=== PATIENT | male | born 1945 | race African-American/Black ===

== ENCOUNTER 2021-06-03 11:39 | Inpatient (IN) | payer MEDICARE ==
[~2021-06-03] VITALS: Ht 172.7 cm; Wt 97.0 kg
[2021-06-03 12:36] VITALS: BP 131/88
[2021-06-03 15:00] VITALS: BP 122/80
[2021-06-03 15:42] LABS: HEMATOCRIT 49.9 % (39.0-53.0); HEMOGLOBIN 16.3 g/dL (13.0-17.5); RED BLOOD COUNT 6.21 x10^6/uL (4.30-5.70); RED CELL DISTRIBUTION WIDTH 15.1 % (11.5-14.5); WHITE BLOOD COUNT 10.7 x10^3/uL (4.0-11.0)
[2021-06-03] MEDS: ASPIRIN CHEWABLE 81 MG TABLET. PO SCH (15:43)
[2021-06-03 15:45] LABS: ALBUMIN 3.5 g/dL (3.4-5.0); ALBUMIN/GLOBULIN RATIO 0.7 (1.0-1.7); CALCIUM 10.2 mg/dL (8.5-10.1); CREATININE 1.6 mg/dL (0.7-1.3); GFR 51.4; TOTAL BILIRUBIN 0.6 mg/dL (0.2-1.0); TOTAL PROTEIN 8.6 g/dL (6.4-8.2)
--- NOTE | 2021-06-03 15:49 | RAD ---
EXAMINATION: XR CHEST 1V CLINICAL HISTORY: SHOB. EXAM DATE/TIME: 06/03/2021 2:21 PM COMPARISON: None FINDINGS: Lines, Tubes, and Devices: None. Cardiomediastinal Silhouette: Prominent cardiac silhouette, likely-joint by AP portable technique. Ao rtic atherosclerotic calcification. Lungs and Pleura: Mild patchy bibasilar opacities. No evidence of pleural effusion. Pulmonary vascula ture unremarkable. Bones and Soft Tissues: Degenerative changes in the thoracic spine. Median sternotomy wires. IMPRESSION: Mild patchy bibasilar airspace disease, possibly subsegmental atelectasis. Correlate with pending CTA chest. Electronically signed by: Alban Sweeney DO (06/03/2021 3:47 PM) [id number]
[2021-06-03] MEDS ORDERED: IOHEXOL 350 MG/ML 100 ML VIAL. IV ONE (16:15)
[2021-06-03] MEDS ORDERED: CONTRAST GIVEN. MC PRN (16:30)
--- NOTE | 2021-06-03 16:59 | RAD ---
EXAMINATION: CTA chest. Technique: Axial images with coronal and sagittal reconstructions with MIP technique are performed of chest with angiogram protocol. 85 mL of Omnipaque 350 administered intravenously. One or more of the following radiation dose reduction techniques was used: automated exposure control , adjustment of mA and/or KV according to patient size, and/or utilization of iterative reconstructio n technique. HISTORY: 76 years Male shortness of breath. COMPARISON: None. FINDINGS: There is a large from filling defects in the pulmonary artery on the right side and other filling def ects in bilateral pulmonary artery branches. The pulmonary embolism on the right side has an unusual the appearance and is associated with the surrounding soft tissue thickening around the catheter righ t pulmonary artery branch point extending around the artery to the right lower lobe concerning for as sociated the central right the hilar or from a mass or lymphadenopathy. The unusual appearance in the right pulmonary artery is suggestive of perhaps subacute pulmonary embolism in the right main pulmon koki artery. The catheter right ventricle appears slightly dilated suggestive of right heart strain. There is no p ericardial or pleural effusion. The thoracic aorta is borderline aneurysmal measuring 4 cm in caliber . There is no dissection. There is evidence of prior CABG surgery. The lungs demonstrate nonspecific focal groundglass opacity in the superior segment of the right lowe r lobe with distortion of the architecture of the lung suggestive of possible scarring. Subsegmental minimal atelectasis or consolidation is also seen in the lateral aspect of the right lung base. No mediastinal or left hilar mass. Sections in the upper abdomen demonstrate renal cysts. The osseous structures demonstrate degenerative in the thoracic spine. There is a also slight cortica l thickening seen in the posterior aspect of the left ninth rib. Etiology is uncertain. IMPRESSION: 1. Moderate to large burden of pulmonary embolism more on the right side with suggestion of RV strain . 2. Concern for underlying right perihilar mass or lymphadenopathy. Short-term follow-up CT chest afte r anticoagulation treatment to reassess is suggested. PET/CT follow-up could be also helpful. Critical result: Findings discussed by phone with Jonnie, the nurse working with Dr. JIMMIE NAVARRO MD at 06/03/2021 4:47 PM. RESULT CODE: (C) Electronically signed by: Efren Morales MD (06/03/2021 4:56 PM) [id number]
--- NOTE | 2021-06-03 17:56 | HP ---
DATE OF SERVICE: 06/03/2021 ADMIT DATE: 06/03/2021 CHIEF COMPLAINT: Cough and shortness of breath. HISTORY OF PRESENT ILLNESS: A 76-year-old black male who has had slowly increasing dyspnea, dry cough and fatigue for about the last 2 months. Chest x-ray 3 months ago was clear and one month ago he took furosemide for daily, which has not helped him. Recently, he denies sputum production, fever, chills, COVID exposure, chest pain or other symptoms. He has had COVID vaccines up to date of this point. PAST MEDICAL HISTORY: Coronary bypass surgery in 1997. No problems since that time. He has had no other surgeries. MEDICATIONS: Include atorvastatin, amlodipine for hypertension and aspirin. ALLERGIES: No allergies are known. SOCIAL HISTORY: He has never been a smoker. He is retired. He is . He is a nondrinker. FAMILY HISTORY: Unremarkable. REVIEW OF SYSTEMS: No other specific complaints. OBJECTIVE: ENT: All within normal limits. NECK: No masses, nodes, JVD or bruits. LUNGS: Clear with mild tachypnea and decreased breath sounds, but no wheezing or rales are heard. CARDIOVASCULAR: Regular rate. No tachycardia or murmur or S3 is heard. ABDOMEN: Benign. EXTREMITIES: No edema. No joint or skin lesions or nail bed findings. NEUROLOGIC: Physiologic and nonfocal. ASSESSMENT: Ongoing dyspnea, dry cough and now mild hypoxia about a month ago. Possibilities include occult cardiomyopathy or undiagnosed pulmonary disease, not seen on previous x-rays. PLAN: Echo, CT scan, labs and further evaluation with low flow oxygen on board. DIVYA BOOKER: Ragini TID: [id number]
[2021-06-03] MEDS: RIVAROXABAN 15 MG TABLET. PO SCH (18:22)
[2021-06-03 18:33] LABS: HYALINE CASTS, URINE FEW /HPF
[2021-06-03 18:34] LABS: AMORPHOUS SEDIMENT,UR PRESENT /HPF; BACTERIA,URINE 0 /HPF (0-FEW)
[2021-06-03 19:57] VITALS: BP 126/85
[2021-06-03] MEDS: ATORVASTATIN CALCIUM 20 MG TABLET PO SCH (21:12)
[2021-06-03] MEDS: TAMSULOSIN 0.4 MG CAP.ER.24H. PO SCH (21:12)
[2021-06-03 23:34] VITALS: BP 129/82
[2021-06-04 03:54] VITALS: BP 130/79
[2021-06-04 07:00] VITALS: BP 131/80
[2021-06-04] MEDS ORDERED: PERFLUTREN PROTEIN-A MICROSPHR 0.22 MG/ML 3 ML VIAL. IV ONE ×2 (07:00→10:49)
[2021-06-04] MEDS: ASPIRIN CHEWABLE 81 MG TABLET. PO SCH (08:12)
[2021-06-04] MEDS: RIVAROXABAN 15 MG TABLET. PO SCH ×2 (08:12→17:18)
--- NOTE | 2021-06-04 08:40 | PDOC ---
Provider Note Date of Service: DATE: 06/04/21 TIME: 08:[address] shows bilat PE, source ?- on xarelto and feels a litlle better- sxs present 1-2 months- will do echo, us legs, concern re occult CA present- labs ok so far Justifications for Admission Other Justification JIMMIE NAVARRO MD Jun 04, 2021 08:40
--- NOTE | 2021-06-04 09:30 | PDOC ---
PULMONARY PROGRESS NOTES DATE: 06/04/21 TIME: 09:29 Vitals Vital Signs Date Time Temp Pulse Resp B/P (MAP) Pulse Ox O2 Delivery O2 Flow Rate FiO2 06/04/21 08:11 84 131/80 06/04/21 08:00 Nasal Cannula 2.0 06/04/21 07:00 98.0 18 92 98.0 Labs Laboratory Tests Test 06/03/21 13:30 06/03/21 17:45 White Blood Count 10.7 x10^3/uL (4.0-11.0) Red Blood Count 6.21 x10^6/uL (4.30-5.70) Hemoglobin 16.3 g/dL (13.0-17.5) Hematocrit 49.9 % (39.0-53.0) Mean Corpuscular Volume 80 fL (79-100) Mean Corpuscular Hemoglobin 26 pg (25-35) Mean Corpuscular Hemoglobin Concent 33 g/dL (31-37) Red Cell Distribution Width 15.1 % (11.5-14.5) Platelet Count 195 x10^3/uL (140-400) D-Dimer (Madelyn) 17.41 ug/mlFEU (0.00-0.50) Sodium Level 143 mmol/L (136-145) Potassium Level 3.0 mmol/L (3.5-5.1) Chloride Level 105 mmol/L (98-107) Carbon Dioxide Level 29 mmol/L (21-32) Anion Gap 9 (6-14) Blood Urea Nitrogen 20 mg/dL (8-26) Creatinine 1.6 mg/dL (0.7-1.3) Estimated GFR (Cockcroft-Gault) 51.4 BUN/Creatinine Ratio 13 (6-20) Glucose Level 92 mg/dL (70-99) Calcium Level 10.2 mg/dL (8.5-10.1) Total Bilirubin 0.6 mg/dL (0.2-1.0) Aspartate Amino Transf (AST/SGOT) 40 U/L (15-37) Alanine Aminotransferase (ALT/SGPT) 41 U/L (16-63) Alkaline Phosphatase 110 U/L (46-116) Creatine Kinase 274 U/L (39-308) Total Protein 8.6 g/dL (6.4-8.2) Albumin 3.5 g/dL (3.4-5.0) Albumin/Globulin Ratio 0.7 (1.0-1.7) Urine Collection Type Unknown Urine Color (Auto) Yellow Urine Turbidity Clear Urine pH (Auto) 6.5 (<5.0-8.0) Urine Specific [place] >1.050 (1.000-1.030) Urine Protein (Auto) 100 mg/dL (Negative) Urine Glucose (Auto)(UA) Negative mg/dL (Negative) Urine Ketones (Auto) Negative mg/dL (Negative) Urine Blood (Auto) Negative (Negative) Urine Nitrite (Auto) Negative (Negative) Urine Bilirubin (Auto) Negative (Negative) Urine Urobilinogen (Auto) Normal mg/dL (Normal) Urine Leukocyte Esterase (Auto) Negative (Negative) Urine RBC 1-2 /HPF (0-2) Urine WBC 1-4 /HPF (0-4) Urine Squamous Epithelial Cells Few /LPF Urine Amorphous Sediment Present /HPF Urine Bacteria 0 /HPF (0-FEW) Urine Hyaline Casts Few /HPF Urine Mucus Mod /LPF Laboratory Tests Test 06/03/21 13:30 06/03/21 17:45 White Blood Count 10.7 x10^3/uL (4.0-11.0) Red Blood Count 6.21 x10^6/uL (4.30-5.70) Hemoglobin 16.3 g/dL (13.0-17.5) Hematocrit 49.9 % (39.0-53.0) Mean Corpuscular Volume 80 fL (79-100) Mean Corpuscular Hemoglobin 26 pg (25-35) Mean Corpuscular Hemoglobin Concent 33 g/dL (31-37) Red Cell Distribution Width 15.1 % (11.5-14.5) Platelet Count 195 x10^3/uL (140-400) D-Dimer (Madelyn) 17.41 ug/mlFEU (0.00-0.50) Sodium Level 143 mmol/L (136-145) Potassium Level 3.0 mmol/L (3.5-5.1) Chloride Level 105 mmol/L (98-107) Carbon Dioxide Level 29 mmol/L (21-32) Anion Gap 9 (6-14) Blood Urea Nitrogen 20 mg/dL (8-26) Creatinine 1.6 mg/dL (0.7-1.3) Estimated GFR (Cockcroft-Gault) 51.4 BUN/Creatinine Ratio 13 (6-20) Glucose Level 92 mg/dL (70-99) Calcium Level 10.2 mg/dL (8.5-10.1) Total Bilirubin 0.6 mg/dL (0.2-1.0) Aspartate Amino Transf (AST/SGOT) 40 U/L (15-37) Alanine Aminotransferase (ALT/SGPT) 41 U/L (16-63) Alkaline Phosphatase 110 U/L (46-116) Creatine Kinase 274 U/L (39-308) Total Protein 8.6 g/dL (6.4-8.2) Albumin 3.5 g/dL (3.4-5.0) Albumin/Globulin Ratio 0.7 (1.0-1.7) Urine Collection Type Unknown Urine Color (Auto) Yellow Urine Turbidity Clear Urine pH (Auto) 6.5 (<5.0-8.0) Urine Specific [place] >1.050 (1.000-1.030) Urine Protein (Auto) 100 mg/dL (Negative) Urine Glucose (Auto)(UA) Negative mg/dL (Negative) Urine Ketones (Auto) Negative mg/dL (Negative) Urine Blood (Auto) Negative (Negative) Urine Nitrite (Auto) Negative (Negative) Urine Bilirubin (Auto) Negative (Negative) Urine Urobilinogen (Auto) Normal mg/dL (Normal) Urine Leukocyte Esterase (Auto) Negative (Negative) Urine RBC 1-2 /HPF (0-2) Urine WBC 1-4 /HPF (0-4) Urine Squamous Epithelial Cells Few /LPF Urine Amorphous Sediment Present /HPF Urine Bacteria 0 /HPF (0-FEW) Urine Hyaline Casts Few /HPF Urine Mucus Mod /LPF Impression . Acute PE Superficial femoral vein thrombosis Dyspnea secondary to above See orders NICK MYERS MD Jun 04, 2021 09:30
--- NOTE | 2021-06-04 10:15 | RAD ---
US BILATERAL LOWEREXTREMITY VENOUS DOPPLER History: Pulmonary embolism. Shortness of breath. Comparison: CT chest June 03, 2021 Technique: Multiple longitudinal and transverse high resolution real-time images of the venous system of bilateral lower extremity were obtained with color and Doppler sampling. Findings: Nonocclusive thrombus within the left superficial femoral vein. Duplicated superficial femoral veins. Patent left common femoral, popliteal, and calf veins. Patent right common femoral, deep femoral, superficial femoral, popliteal and calf veins. Impression: 1. Deep vein thrombosis within the left superficial femoral vein. Electronically signed by: Dimitry Carlson DO (06/04/2021 10:13 AM) [id number]
[2021-06-04 11:00] VITALS: BP 146/89
[2021-06-04] MEDS ORDERED: ANTI-COAG MONITOR BY PHARMACY. MC PRN (13:00)
--- NOTE | 2021-06-04 13:03 | CARD ---
MR#: [id number] Date of Study: 06/04/2021 Ordering Physician: JIMMIE NAVARRO, Referring Physician: JIMMIE NAVARRO Tech: Crystal Jerry LA NENA APPROVED REPORT EXAM: Two-dimensional and M-mode echocardiogram with Doppler and color Doppler. Other Information Quality : Technically LimitedHR: 82bpm INDICATION Dyspnea Echo Enhancing Agent Indication: Endocardial border delineation Agent/Amount Used: Optison 3mL RISK FACTORS Hypertension Obesity Hyperlipidemia 2D DIMENSIONS RVDd4.1 (2.9-3.5cm)Left Atrium(2D)3.9 (1.6-4.0cm) IVSd1.5 (0.7-1.1cm)Aortic Root(2D)4.2 (2.0-3.7cm) LVDd4.8 (3.9-5.9cm)LVOT Diameter2.2 (1.8-2.4cm) PWd1.5 (0.7-1.1cm)LVDs3.0 (2.5-4.0cm) FS (%) 36.0 %SV68.9 ml LVEF(%)65.6 (>50%) Aortic Valve AoV Peak Marvin.109.5cm/sAoV VTI18.1cm AO Peak GR.4.8mmHgLVOT Peak Marvin.82.3cm/s AO Mean GR.2mmHgAVA (VMAX)2.77cm2 Mitral Valve MV E Hexmzxlo70.5cm/sMV DECEL [id number] MV A Vqiybubt98.1cm/sE/A Ratio0.7 Pulmonary Valve PV Peak Kldqspeb22.4cm/s Tricuspid Valve TR P. Muoqnzuh674cg/sTR Peak Gr.55mmHg LEFT VENTRICLE The left ventricle is normal size. There is moderate concentric left ventricular hypertrophy. The lef t ventricular systolic function is mildly impaired. Estimated ejection fraction 45%. Transmitral Dop pler flow pattern is Grade I-abnormal relaxation pattern. RIGHT VENTRICLE The right ventricle is mildly dilated. There is normal right ventricular wall thickness. Systolic fun ction is mildly reduced. ATRIA The left atrium size is normal. The right atrium size is normal. The interatrial septum is intact wit h no evidence for an atrial septal defect or patent foramen ovale as noted on 2-D or Doppler imaging. AORTIC VALVE The aortic valve is normal in structure and function. Doppler and Color Flow revealed trace aortic re gurgitation. There is no significant aortic valvular stenosis. MITRAL VALVE The mitral valve is normal in structure and function. There is no evidence of mitral valve prolapse. There is no mitral valve stenosis. Doppler and Color-flow revealed mild mitral regurgitation. TRICUSPID VALVE The tricuspid valve is normal in structure and function. Doppler and Color Flow revealed mild tricusp id regurgitation. Estimated PAP 65-70 mmHg. There is no tricuspid valve stenosis. PULMONIC VALVE The pulmonary valve is normal in structure and function. Doppler and Color Flow revealed mild to mode rate pulmonic valvular regurgitation. GREAT VESSELS The aortic root is mildly enlarged. The ascending aorta is Mildly dilated. The IVC is dilated and col lapses <50% with inspiration. PERICARDIAL EFFUSION There is no evidence of significant pericardial effusion. Critical Notification Critical Value: No <Conclusion> Technically difficult study. Optison echo contrast used. The left ventricular systolic function is mildly impaired. Estimated ejection fraction 45%. Transmitral Doppler flow pattern is Grade I-abnormal relaxation pattern. Mild mitral regurgitation. Mild tricuspid regurgitation. Estimated PAP 65-70 mmHg. There is no evidence of significant pericardial effusion. Signed by : Colby Cheek, Electronically Approved : 06/04/2021 13:02:55
[2021-06-04 15:00] VITALS: BP 131/85
[2021-06-04 19:00] VITALS: BP 142/87
--- NOTE | 2021-06-04 20:40 | CONS ---
DATE OF CONSULTATION: 06/04/2021 ATTENDING PHYSICIAN: Darryl Kahn MD REASON FOR CONSULTATION: The patient is seen in pulmonary consultation at the request of Dr. Kahn for shortness of air. HISTORY OF PRESENT ILLNESS: The patient is a 76-year-old who is somewhat of a poor historian, presented to Dr. Kahn's office with increasing dyspnea, cough, mostly nonproductive. He was admitted. Dr. Kahn ordered a stat CT angiogram, venous Dopplers of lower extremities. He was admitted yesterday. CT angiogram revealed no pulmonary embolism. He is currently on Xarelto, which was started yesterday 15 mg twice daily. I was asked to see him in consultation. The patient denies any lower extremity trauma. No recent surgery. No prior history of thrombophilia. No family history of thrombophilia. He denies any prior history of cancer. No recent travel, he is more or less lives a sedentary life, does not get around too much, back to his , was starting to talk about the possibility of him walking and exercising. PAST MEDICAL HISTORY: Coronary artery disease with previous coronary artery bypass grafting. He also takes amlodipine for hypertension and atorvastatin for hyperlipidemia. PAST SURGICAL HISTORY: Coronary artery bypass grafting. MEDICATIONS: List was reviewed. ALLERGIES: No known drug allergies. SOCIAL HISTORY: He has never smoked. He is currently retired. FAMILY HISTORY: No family history of thrombophilia. REVIEW OF SYSTEMS: As indicated above, otherwise other systems were reviewed and negative. CURRENT MEDICATIONS: List was reviewed. PHYSICAL EXAMINATION: VITAL SIGNS: Stable. O2 saturation greater than 92%, currently on 2 liters. His heart rate at times is elevated. HEENT: Eyes: His sclerae were nonicteric. NECK: Jugular venous distention was slightly elevated. No lymphadenopathy. CHEST: Full expansion. LUNGS: Adequate flow with no wheezes. CARDIOVASCULAR: Regular rate and rhythm with S1, S2, no S3. ABDOMEN: Soft. EXTREMITIES: No clubbing, cyanosis or edema. He has slight edema of the left lower extremity. NEUROLOGIC: The patient was awake, alert, following commands. A detailed neuro exam was not performed. LABORATORY DATA: Reviewed. Serology for SARS-CoV-2 was negative. UA was noted. Electrolytes were noted. Potassium was low. BUN was 20, creatinine was 1.6. D-dimer was elevated. White count was normal. Hemoglobin and hematocrit were noted. CT angiogram revealed bilateral pulmonary infiltrates. Venous Doppler of the lower extremities were positive on the left. IMPRESSION: 1. Progressive dyspnea secondary to acute pulmonary embolism. 2. Acute pulmonary embolism. 3. Left superficial femoral vein thrombosis. 4. Hypertension. 5. Hyperlipidemia. 6. Coronary artery disease with previous coronary artery bypass grafting. 7. Possible right hilar mass. PLAN: 1. Continue Xarelto. 2. Suspect the patient's thromboembolism is related to his immobilization, with that being said, workup for hypercoagulable state once patient is off of Xarelto. 3. Repeat CT chest in 2 months. 4. Continue home meds. 5. Obtain echo. I do appreciate the privilege in sharing in the patient's care. BAYLEE DR: Liliana TID: [id number]
[2021-06-04] MEDS: TAMSULOSIN 0.4 MG CAP.ER.24H. PO SCH (20:57)
[2021-06-04] MEDS: ATORVASTATIN CALCIUM 20 MG TABLET PO SCH (20:57)
[2021-06-04 22:58] VITALS: BP 132/89
[2021-06-05 03:13] VITALS: BP 133/85
[2021-06-05 07:00] VITALS: BP 125/93
[2021-06-05 08:27] LABS: CALCIUM 9.4 mg/dL (8.5-10.1); CREATININE 1.2 mg/dL (0.7-1.3); GFR 71.6
--- NOTE | 2021-06-05 08:40 | PDOC ---
PULMONARY PROGRESS NOTES DATE: 06/05/21 TIME: 08:40 Subjective Patient feels less dyspneic compared to yesterday not yet back to baseline Vitals Vital Signs Date Time Temp Pulse Resp B/P (MAP) Pulse Ox O2 Delivery O2 Flow Rate FiO2 06/05/21 07:00 98.2 82 18 125/93 (104) 91 Nasal Cannula 2.0 98.2 ROS: No Nausea, No Chest Pain, No Abdominal Pain, No Increase Cough General: Alert Lungs: Clear Cardiovascular: S1, S2 Abdomen: Soft Neuro Exam: Alert Extremities: No Edema Skin: Warm Labs Laboratory Tests Test 06/03/21 13:30 06/03/21 17:45 06/03/21 19:40 06/05/21 07:44 White Blood Count 10.7 x10^3/uL (4.0-11.0) Red Blood Count 6.21 x10^6/uL (4.30-5.70) Hemoglobin 16.3 g/dL (13.0-17.5) Hematocrit 49.9 % (39.0-53.0) Mean Corpuscular Volume 80 fL (79-100) Mean Corpuscular Hemoglobin 26 pg (25-35) Mean Corpuscular Hemoglobin Concent 33 g/dL (31-37) Red Cell Distribution Width 15.1 % (11.5-14.5) Platelet Count 195 x10^3/uL (140-400) D-Dimer (Madelyn) 17.41 ug/mlFEU (0.00-0.50) Sodium Level 143 mmol/L (136-145) 144 mmol/L (136-145) Potassium Level 3.0 mmol/L (3.5-5.1) 3.0 mmol/L (3.5-5.1) Chloride Level 105 mmol/L (98-107) 108 mmol/L (98-107) Carbon Dioxide Level 29 mmol/L (21-32) 28 mmol/L (21-32) Anion Gap 9 (6-14) 8 (6-14) Blood Urea Nitrogen 20 mg/dL (8-26) 13 mg/dL (8-26) Creatinine 1.6 mg/dL (0.7-1.3) 1.2 mg/dL (0.7-1.3) Estimated GFR (Cockcroft-Gault) 51.4 71.6 BUN/Creatinine Ratio 13 (6-20) Glucose Level 92 mg/dL (70-99) 101 mg/dL (70-99) Calcium Level 10.2 mg/dL (8.5-10.1) 9.4 mg/dL (8.5-10.1) Total Bilirubin 0.6 mg/dL (0.2-1.0) Aspartate Amino Transf (AST/SGOT) 40 U/L (15-37) Alanine Aminotransferase (ALT/SGPT) 41 U/L (16-63) Alkaline Phosphatase 110 U/L (46-116) Creatine Kinase 274 U/L (39-308) Total Protein 8.6 g/dL (6.4-8.2) Albumin 3.5 g/dL (3.4-5.0) Albumin/Globulin Ratio 0.7 (1.0-1.7) Urine Collection Type Unknown Urine Color (Auto) Yellow Urine Turbidity Clear Urine pH (Auto) 6.5 (<5.0-8.0) Urine Specific [place] >1.050 (1.000-1.030) Urine Protein (Auto) 100 mg/dL (Negative) Urine Glucose (Auto)(UA) Negative mg/dL (Negative) Urine Ketones (Auto) Negative mg/dL (Negative) Urine Blood (Auto) Negative (Negative) Urine Nitrite (Auto) Negative (Negative) Urine Bilirubin (Auto) Negative (Negative) Urine Urobilinogen (Auto) Normal mg/dL (Normal) Urine Leukocyte Esterase (Auto) Negative (Negative) Urine RBC 1-2 /HPF (0-2) Urine WBC 1-4 /HPF (0-4) Urine Squamous Epithelial Cells Few /LPF Urine Amorphous Sediment Present /HPF Urine Bacteria 0 /HPF (0-FEW) Urine Hyaline Casts Few /HPF Urine Mucus Mod /LPF Coronavirus (COVID-19)(PCR) Not detected (NOT DETECTD) Laboratory Tests Test 06/05/21 07:44 Sodium Level 144 mmol/L (136-145) Potassium Level 3.0 mmol/L (3.5-5.1) Chloride Level 108 mmol/L (98-107) Carbon Dioxide Level 28 mmol/L (21-32) Anion Gap 8 (6-14) Blood Urea Nitrogen 13 mg/dL (8-26) Creatinine 1.2 mg/dL (0.7-1.3) Estimated GFR (Cockcroft-Gault) 71.6 Glucose Level 101 mg/dL (70-99) Calcium Level 9.4 mg/dL (8.5-10.1) Impression . IMPRESSION: 1. Progressive dyspnea secondary to acute pulmonary embolism. 2. Acute pulmonary embolism. 3. Left superficial femoral vein thrombosis. 4. Hypertension. 5. Hyperlipidemia. 6. Coronary artery disease with previous coronary artery bypass grafting. 7. Possible right hilar mass. <Conclusion> Technically difficult study. Optison echo contrast used. The left ventricular systolic function is mildly impaired. Estimated ejection fraction 45%. Transmitral Doppler flow pattern is Grade I-abnormal relaxation pattern. Mild mitral regurgitation. Mild tricuspid regurgitation. Estimated PAP 65-70 mmHg. There is no evidence of significant pericardial effusion. Signed by : Colby Cheek, Electronically Approved : 06/04/2021 13:02:55 Plan . Updated 06/05 Continue Xarelto Echo report noted Suspect secondary pulmonary hypertension will improve with time Repeat CT chest in 2 months Possible discharge in the a.m. PLAN: 1. Continue Xarelto. 2. Suspect the patient's thromboembolism is related to his immobilization, with that being said, workup for hypercoagulable state once patient is off of Xarelto. 3. Repeat CT chest in 2 months. 4. Continue home meds. 5. Obtain echo. I do appreciate the privilege in sharing in the patient's care. NICK MYERS MD Jun 05, 2021 08:40
[2021-06-05] MEDS: POTASSIUM CHLORIDE 10 MEQ TABLET.ER. PO SCH ×3 (08:43→17:34)
[2021-06-05] MEDS: RIVAROXABAN 15 MG TABLET. PO SCH (08:43)
[2021-06-05] MEDS: ASPIRIN CHEWABLE 81 MG TABLET. PO SCH (08:43)
--- NOTE | 2021-06-05 08:47 | PDOC ---
Provider Note Date of Service: DATE: 06/05/21 TIME: 08:46 Provider Note still mildly dyspneic, dry cough- has dvt L leg as source of PE- low K+, add po and check aldosterone level re ? source Justifications for Admission Other Justification JIMMIE NAVARRO MD Jun 05, 2021 08:47
[2021-06-05 10:46] VITALS: BP 121/85
--- NOTE | 2021-06-05 11:52 | NUR ---
SS following for discharge planning. SS reviewed pt chart and discussed with pt RN. Pt is from home with spouse and is currently requiring oxygen at two liters nasal canula. COVID19 negative. Pulmonology following. Discharge plan is currently to home when medically ready for discharge. SS will continue to follow for discharge planning.
[2021-06-05 15:00] VITALS: BP 137/80
[2021-06-05 15:29] LABS: PROTHROMBIN TIME PATIENT 31.5 SEC (11.7-14.0)
[2021-06-05] MEDS ORDERED: WARFARIN 5 MG TABLET. PO SCH (16:00)
[2021-06-05 19:00] VITALS: BP 135/86
[2021-06-05] MEDS: TAMSULOSIN 0.4 MG CAP.ER.24H. PO SCH (20:55)
[2021-06-05] MEDS: ATORVASTATIN CALCIUM 20 MG TABLET PO SCH (20:55)
[2021-06-05 23:15] VITALS: BP 103/81
[2021-06-06 07:00] VITALS: BP 127/89
[2021-06-06] MEDS: POTASSIUM CHLORIDE 10 MEQ TABLET.ER. PO SCH ×3 (08:24→17:32)
[2021-06-06] MEDS: ASPIRIN CHEWABLE 81 MG TABLET. PO SCH (08:24)
--- NOTE | 2021-06-06 08:31 | PDOC ---
Provider Note Date of Service: DATE: 06/06/21 TIME: 08:29 Provider Note vss, vesna ok- eliquis not covered so had to switch to annabelle/warfarin, daily inr pending- dc when inr 2.0 as lovenox too $ also- follow K+ Justifications for Admission Other Justification JIMMIE NAVARRO MD Jun 06, 2021 08:31
--- NOTE | 2021-06-06 08:41 | PDOC ---
Provider Note Date of Service: DATE: 06/06/21 TIME: 08:40 Provider Note has learned that Xarelto will be reimbursed, so jenise dc annabelle/warf and resume xarelto- 6 min walk, likely dc in am if still ok Justifications for Admission Other Justification JIMMIE NAVARRO MD Jun 06, 2021 08:41
[2021-06-06 09:28] LABS: PROTHROMBIN TIME PATIENT 17.1 SEC (11.7-14.0)
--- NOTE | 2021-06-06 09:46 | PDOC ---
PULMONARY PROGRESS NOTES DATE: 06/06/21 TIME: 09:46 Subjective Patient feels 50% better, still short of breath with exertion currently on 3 L No hemoptysis Vitals Vital Signs Date Time Temp Pulse Resp B/P (MAP) Pulse Ox O2 Delivery O2 Flow Rate FiO2 06/06/21 08:25 85 128/87 06/06/21 08:00 Nasal Cannula 3.5 06/06/21 07:00 97.3 18 89 97.3 ROS: No Nausea, No Chest Pain, No Abdominal Pain, No Increase Cough General: Alert Lungs: Clear Cardiovascular: S1, S2 Abdomen: Soft Neuro Exam: Alert Extremities: No Edema Skin: Warm Labs Laboratory Tests Test 06/05/21 07:44 06/05/21 14:36 06/06/21 08:15 Sodium Level 144 mmol/L (136-145) Potassium Level 3.0 mmol/L (3.5-5.1) Chloride Level 108 mmol/L (98-107) Carbon Dioxide Level 28 mmol/L (21-32) Anion Gap 8 (6-14) Blood Urea Nitrogen 13 mg/dL (8-26) Creatinine 1.2 mg/dL (0.7-1.3) Estimated GFR (Cockcroft-Gault) 71.6 Glucose Level 101 mg/dL (70-99) Calcium Level 9.4 mg/dL (8.5-10.1) Prothrombin Time 31.5 SEC (11.7-14.0) 17.1 SEC (11.7-14.0) Prothromb Time International Ratio 3.1 (0.8-1.1) 1.4 (0.8-1.1) Laboratory Tests Test 06/05/21 14:36 06/06/21 08:15 Prothrombin Time 31.5 SEC (11.7-14.0) 17.1 SEC (11.7-14.0) Prothromb Time International Ratio 3.1 (0.8-1.1) 1.4 (0.8-1.1) Impression . IMPRESSION: 1. Progressive dyspnea secondary to acute pulmonary embolism. 2. Acute pulmonary embolism. 3. Left superficial femoral vein thrombosis. 4. Hypertension. 5. Hyperlipidemia. 6. Coronary artery disease with previous coronary artery bypass grafting. 7. Possible right hilar mass. <Conclusion> Technically difficult study. Optison echo contrast used. The left ventricular systolic function is mildly impaired. Estimated ejection fraction 45%. Transmitral Doppler flow pattern is Grade I-abnormal relaxation pattern. Mild mitral regurgitation. Mild tricuspid regurgitation. Estimated PAP 65-70 mmHg. There is no evidence of significant pericardial effusion. Signed by : Colby Cheek, Electronically Approved : 06/04/2021 13:02:55 Plan . Updated 06/06 6-minute walk today Continue Xarelto, I went over the side effects including falling then experiencing intracranial hemorrhage Went over the side effects of Xarelto with GI tract Patient has had previous colonoscopy Appreciate Dr. Kahn's input Follow-up with me in 2 months once discharged updated 06/05 Continue Xarelto Echo report noted Suspect secondary pulmonary hypertension will improve with time Repeat CT chest in 2 months Possible discharge in the a.m. PLAN: 1. Continue Xarelto. 2. Suspect the patient's thromboembolism is related to his immobilization, with that being said, workup for hypercoagulable state once patient is off of Xarelto. 3. Repeat CT chest in 2 months. 4. Continue home meds. 5. Obtain echo. I do appreciate the privilege in sharing in the patient's care. NICK MYERS MD Jun 06, 2021 09:46
[2021-06-06 11:00] VITALS: BP 135/80
[2021-06-06] MEDS: RIVAROXABAN 15 MG TABLET. PO SCH ×2 (11:21→17:32)
[2021-06-06 15:00] VITALS: BP 130/87
[2021-06-06 19:51] VITALS: BP 128/86
[2021-06-06] MEDS: ATORVASTATIN CALCIUM 20 MG TABLET PO SCH (21:05)
[2021-06-06] MEDS: TAMSULOSIN 0.4 MG CAP.ER.24H. PO SCH (21:05)
[2021-06-06 23:17] VITALS: BP 138/90
[2021-06-07 03:55] VITALS: BP 133/87
[2021-06-07 07:30] VITALS: BP 137/88
--- NOTE | 2021-06-07 08:10 | PDOC ---
PULMONARY PROGRESS NOTES DATE: 06/07/21 TIME: 08:10 Subjective Feels better, off of oxygen at rest no chest pain no pressure Vitals Vital Signs Date Time Temp Pulse Resp B/P (MAP) Pulse Ox O2 Delivery O2 Flow Rate FiO2 06/07/21 07:30 98.0 72 18 137/88 (104) 93 Nasal Cannula 2.0 98.0 ROS: No Nausea, No Chest Pain, No Abdominal Pain, No Increase Cough General: Alert Lungs: Clear Cardiovascular: S1, S2 Abdomen: Soft Neuro Exam: Alert Extremities: No Edema Skin: Warm Labs Laboratory Tests Test 06/05/21 14:36 06/06/21 08:15 Prothrombin Time 31.5 SEC (11.7-14.0) 17.1 SEC (11.7-14.0) Prothromb Time International Ratio 3.1 (0.8-1.1) 1.4 (0.8-1.1) Laboratory Tests Test 06/06/21 08:15 Prothrombin Time 17.1 SEC (11.7-14.0) Prothromb Time International Ratio 1.4 (0.8-1.1) Impression . IMPRESSION: 1. Progressive dyspnea secondary to acute pulmonary embolism. 2. Acute pulmonary embolism. 3. Left superficial femoral vein thrombosis. 4. Hypertension. 5. Hyperlipidemia. 6. Coronary artery disease with previous coronary artery bypass grafting. 7. Possible right hilar mass. <Conclusion> Technically difficult study. Optison echo contrast used. The left ventricular systolic function is mildly impaired. Estimated ejection fraction 45%. Transmitral Doppler flow pattern is Grade I-abnormal relaxation pattern. Mild mitral regurgitation. Mild tricuspid regurgitation. Estimated PAP 65-70 mmHg. There is no evidence of significant pericardial effusion. Signed by : Colby Cheek, Electronically Approved : 06/04/2021 13:02:55 Plan . Updated 06/07 Requires 3 L with exertion Follow-up with me in 4 weeks Discharge today Discussed with at the bedside Updated 06/06 6-minute walk today Continue Xarelto, I went over the side effects including falling then experiencing intracranial hemorrhage Went over the side effects of Xarelto with GI tract Patient has had previous colonoscopy Appreciate Dr. Kahn's input Follow-up with me in 2 months once discharged NICK MYERS MD Jun 07, 2021 08:10
--- NOTE | 2021-06-07 08:35 | PDOC ---
Provider Note Date of Service: DATE: 06/07/21 TIME: 08:34 Provider Note [id number] Justifications for Admission Other Justification JIMMIE NAVARRO MD Jun 07, 2021 08:35
[2021-06-07] MEDS: RIVAROXABAN 15 MG TABLET. PO SCH ×2 (09:25→17:00)
[2021-06-07] MEDS: ASPIRIN CHEWABLE 81 MG TABLET. PO SCH (09:25)
[2021-06-07 10:59] VITALS: BP 138/83
--- NOTE | 2021-06-07 13:31 | DS ---
DATE OF DISCHARGE: 06/07/2021 HOSPITAL SUMMARY: A 76-year-old black male who came in with ongoing dyspnea over the last 4-6 weeks. Chest x-ray was clear, but CT scan showed bilateral pulmonary emboli. Doppler studies showed DVT of the left leg as well. Her laboratory studies were all unremarkable except potassium low at 3.0 and aldosterone level is pending. He was treated with Xarelto and oral potassium and is doing well. A 6-minute walk has been accomplished and he has home oxygen as needed. Discharge has been arranged and he will be followed as an outpatient at this point. FINAL DIAGNOSES: 1. Acute bilateral pulmonary emboli. 2. Deep vein thrombosis of the left leg. 3. Hypokalemia. Etiology undetermined. OPERATIONS, PROCEDURES, AND COMPLICATIONS: None. CONSULTATION: Agus Yusuf MD. DISPOSITION: He will follow up in 2 weeks and changes Xarelto from 15 mg twice a day to 20 mg once a day. He will take this for probably 6 months. We will follow up with potassium levels as an outpatient and check the aldosterone result to see a source of her hypokalemia is found. Home meds remain the same. ACTIVITY: As tolerated. PROGNOSIS: Good. RAMOS/ABRAHAM/ANCA DR: Ragini TID: [id number]
[2021-06-07 15:30] VITALS: BP 129/89
--- NOTE | 2021-06-07 17:07 | NUR ---
pt discharged to home. taken out by wheelchair
== END 2021-06-07 16:40 | disposition home or self-care (01) | DRG 176 ==
LOC: 5 NORTH 11:39 → 4 NORTH 06-06 00:22
PROVIDERS: ADMIT Family Medicine; ATTEND Family Medicine
DX: I26.99 Other pulmonary embolism without acute cor pulmonale (principal); I82.412 Acute embolism and thrombosis of left femoral vein; E78.5 Hyperlipidemia, unspecified; E87.6 Hypokalemia; I10 Essential (primary) hypertension; I25.10 Atherosclerotic heart disease of native coronary artery without angina pectoris; Z20.822 Contact with and (suspected) exposure to COVID-19; I08.1 Rheumatic disorders of both mitral and tricuspid valves; Z95.1 Presence of aortocoronary bypass graft
CPT/HCPCS: 36415; 71045; 71275; 80048; 80053; 81001; 82088; 82550; 85027; 85379; 85610; 93306; 93970; 94618; J1650; Q9956; Q9967; U0003; C8929; G0378

== ENCOUNTER → 2021-07-26 | Outpatient (CLI) | payer MEDICARE ==
[~2021-07-26] MED LIST: CONTRAST GIVEN. MC PRN; IOHEXOL 350 MG/ML 100 ML VIAL. IV ONE
--- NOTE | 2021-07-26 10:00 | RAD ---
CTA CHEST History: History of pulmonary embolus. Abnormal lab. Technique: CT of the chest was performed with intravenous contrast. PE protocol. Maximum intensity pr ojection coronal and sagittal reconstructions were performed. Exposure: One or more of the following individualized dose reduction techniques were utilized for thi s examination: 1. Automated exposure control 2. Adjustment of the mA and/or kV according to patient size 3. Use of iterative reconstruction technique. Comparison: June 03, 2021 Findings: Chest: Significantly decreased pulmonary embolus bilaterally. Persistent regions of eccentric thrombu s within the right lower lobe. Stenosis of the right lower lobe lateral pulmonary artery segment. Rig ht lower lobe posterior segment stenosis at the origin. Enlarged pulmonary artery measures 4.3 cm. No pathologic lymphadenopathy. Coronary artery calcifications. Mild atheromatous plaque within the aort a. Asymmetric gynecomastia, right greater than left, unchanged. Right lower lobe nodular consolidation with central lucency measures 1.7 x 1.6 cm (series 3 image 45) . This is within the region of opacity seen previously. Scattered bilateral linear atelectasis most p rominent within the right lower lobe. Mild pulmonary emphysema. No pleural effusion. No pneumothorax. Right middle lobe fissure-based nodular opacity measures 0.6 cm (series 3 image 65), increased compar ed to prior. Upper abdomen: Left upper renal cysts, unchanged. Small right superior renal cyst. Bones: No pathologic osseous lesions. Impression: 1. Significantly decreased pulmonary embolus burden compared to prior. Eccentric residual thrombus w ithin the right lower lobe pulmonary arteries with stenosis. 2. Increased right lower lobe nodular opacity, may represent evolving pulmonary infarct. Recommend 3 month follow-up chest CT without contrast to ensure expected evolution. 3. Increased right middle lobe nodular opacity. Recommend attention on follow-up. 4. Enlarged pulmonary arteries, may indicate pulmonary artery hypertension. 5. Mild scattered linear atelectasis bilaterally. Electronically signed by: Dimitry Carlson DO (07/26/2021 9:58 AM) [id number]
== END ==
LOC: CT 08:48
PROVIDERS: ATTEND Internal Medicine Pulmonary Disease
DX: I26.99 Other pulmonary embolism without acute cor pulmonale (principal); R91.8 Other nonspecific abnormal finding of lung field; Q25.6 Stenosis of pulmonary artery; I25.10 Atherosclerotic heart disease of native coronary artery without angina pectoris; I70.0 Atherosclerosis of aorta; J43.9 Emphysema, unspecified; J98.11 Atelectasis; I77.89 Other specified disorders of arteries and arterioles; N28.1 Cyst of kidney, acquired; N62 Hypertrophy of breast
CPT/HCPCS: 71275; Q9967